=== PATIENT | female | born 1990 | race American Indian/Alaskan Native ===

== ENCOUNTER 2016-12-17 17:52 | Emergency (ER) | payer MEDICAID, OTHER ==
[2016-12-17 18:14] VITALS: BMI 38.7
[2016-12-17 19:09] LABS: GRANULAR CAST 1 /lpf (0-1); RBC URINE 2 /hpf (0-3); URINE BACTERIA RARE (<OCC); URINE BILIRUBIN NEGATIVE (NEGATIVE); URINE BLOOD NEGATIVE (NEGATIVE); URINE CALCIUM OXALATE CRYSTALS MANY /hpf (<OCC); URINE COLOR YELLOW (YELLOW); URINE GLUCOSE (UA) NEG (Normal); URINE KETONE NEGATIVE (NEGATIVE); URINE LEUKOCYTE ESTERASE NEG Leu/uL (Negative); URINE PROTEIN NEGATIVE (NEGATIVE); URINE UROBILINOGEN 0.2-1.0 mg/dL (0.2-1.0); WBC URINE 4 /hpf (0-5)
== END 2016-12-17 19:30 | disposition home or self-care (01) ==
LOC: H.EROB2 17:52
DX: O26.93 Pregnancy related conditions, unspecified, third trimester (principal); R19.7 Diarrhea, unspecified; Z87.59 Personal history of other complications of pregnancy, childbirth and the puerperium; Z3A.28 28 weeks gestation of pregnancy

== ENCOUNTER 2017-02-22 10:02 | Inpatient (IN) | payer MEDICAID, OTHER ==
[2017-02-22 10:17] VITALS: BMI 42.4
[2017-02-22] MEDS ORDERED: ceFAZolin 2 GM in Sodium Chloride 0.9% 100 ML IVPB ONE (10:20)
[2017-02-22] MEDS: Lactated Ringer's 1,000 ML IV SCH ×5 (10:30→16:11)
--- NOTE | 2017-02-22 10:48 | OBHP ---
Datetime: 02/22/2017 10:44 IP Adm Impression: Term, intrauterine ; No Active Labor IP Admit Plan: Admit to unit Admit Comment, IP Provider: Patient presents to labor delivery for repeat section tubal lig ation. Patient reports good movement no vaginal bleeding or leakage of fluid care unre markable patient has history of previous delivery declines vaginal delivery Past medical history none Past surgical history previous delivery No known drug allergies Social history denies alcohol tobacco use Medications vitamins Obstetrical history one normal vaginal delivery 1 previous delivery Review of systems unremarkable Vital signs stable afebrile Physical exam she notes Intrauterine at 39 weeks for repeat section and bilateral tubal ligation Reviewed the risks benefits and alternatives of delivery patient's questions were answered and she agrees with plan of care We'll admit for postop care Pelvic Type - PN: Adequate Extremities - PN: Normal Abdomen - PN: Normal Back - PN: Normal Breast - PN: Normal Lungs - PN: Normal Heart - PN: Normal Thyroid - PN: Normal Neurologic - PN: Normal HEENT - PN: Normal General - PN: Normal Weight - Estimated: 8 Presentation-Admit: Vertex Gestation - Est Wks by US: 39.0 EGA AdmitDate IP: 37.6 Vital Signs Provider: Reviewed IP Chief Complaint: Scheduled Section FHR Category Provider Fetus A: Category I NICHD Decel Fetus A IP Provider: None Genitourinary Exam: Normal DTRs - PN: Normal
[2017-02-22 11:24] LABS: BASO % 0.2 % (0.0-2.0); EOS # 0.1 K/uL (0.0-0.7); EOS % 0.9 % (0.0-4.0); HEMATOCRIT 34.1 % (34.0-47.0); LYMPH # 1.9 K/uL (1.0-4.3); LYMPH % 29.9 % (20.0-40.0); MEAN CELL VOLUME 87.1 fl (81.0-99.0); MEAN CORPUSCULAR HEMOGLOBIN 28.7 pg (27.0-31.0); MEAN CORPUSCULAR HGB CONC 32.9 g/dL (33.0-37.0); MONO # 0.5 K/uL (0.0-0.8); MONO % 8.3 % (0.0-10.0); NEUT # 3.9 K/uL (1.8-7.0); NEUT % 60.7 % (50.0-75.0); WHITE BLOOD COUNT 6.4 K/uL (4.8-10.8)
[2017-02-22] MEDS ORDERED: Oxytocin 30 units/LR 500ML 30 U/500 ML BAG IV ONE ×2 (11:45→12:55)
[2017-02-22] MEDS ORDERED: Morphine 1 mg/ml preservative-free Inj(Duramorph) ONE (12:26)
[2017-02-22] MEDS ORDERED: Naloxone 0.4 mg/ml Inj (Adult) IVP PRN (14:31)
[2017-02-22] MEDS: DiphenhydrAMINE 50 mg/ml Inj IVP PRN ×2 (14:40→21:01)
[2017-02-23 07:51] LABS: HEMATOCRIT 32.8 % (34.0-47.0); MEAN CELL VOLUME 87.2 fl (81.0-99.0); MEAN CORPUSCULAR HEMOGLOBIN 28.7 pg (27.0-31.0); MEAN CORPUSCULAR HGB CONC 32.9 g/dL (33.0-37.0); WHITE BLOOD COUNT 8.1 K/uL (4.8-10.8)
--- NOTE | 2017-02-23 11:49 | OBPPN ---
Datetime: 02/23/2017 11:38 PP Pain Prov: Within normal limits PP Nausea Prov: Denies PP Flatus Prov: Yes PP Breasts Prov: Normal PP Heart Prov: Normal PP Lungs Prov: Normal PP Abdomen/Uterus Prov: Normal PP Lochia Prov: Normal PP Vulva/Perineum Prov: Normal PP CVA Tenderness Prov: Normal PP Extremities Prov: Normal PP Comments Phys Exam Prov: Fundus firm under umbilicus Incision clean/dry/intact PP Impression Prov: Normal progression PP Plan Prov: Continue present management PP Progress Note Prov: Patient denies Cp, no sob, no N/V, tolerating PO diet, ambulating/voiding wel l, abdominal pain tolerable with meds, mild lochia, +flatus A/P POD #1 1. Reg diet 2. Percocet/Motrin prn pain 3. Encourage ambulation/ 4. Colace prn costipation IP PP Procedures: None Vital Signs Provider PP: Reviewed
[2017-02-24] MEDS: Oxycodone/Acetaminophen 5/325 mg Tab PO PRN ×3 (02:00→22:19)
--- NOTE | 2017-02-24 09:39 | OBPPN ---
Datetime: 02/24/2017 09:35 PP Pain Prov: Within normal limits PP Nausea Prov: Denies PP Flatus Prov: Yes PP BM Prov: No PP Abdomen/Uterus Prov: Normal PP Lochia Prov: Normal PP Extremities Prov: Normal PP C/S Incision Prov: Normal PP Progress Prov: Normal PP Comments Phys Exam Prov: Incision: intact, swerosanguinous drainage on steri strips, strips remov ed PP Impression Prov: Normal progression PP Plan Prov: Continue present management PP Progress Note Prov: POD 2 s/ Repeat LTCS, doing well, breast and bottle feeding Continue current management Vital Signs Provider PP: Reviewed
[2017-02-24] MEDS ORDERED: Hydrocortisone-Pramoxine 1%-1% Foam(10 gm) TOP PRN (09:40)
[2017-02-25] MEDS: Oxycodone/Acetaminophen 5/325 mg Tab PO PRN (09:22)
--- NOTE | 2017-02-25 10:12 | OBDCSUM ---
Datetime: 02/25/2017 08:42 Discharged to, Provider: Home Follow up at, Provider: OB Disch Instr Activity: Normal activity; May be up to bathroom; May be up for meals; May Shower Disch Instr Diet: Regular Discharge Diagnosis, Provider: Term Delivered Discharge Time: 02/25/2017 08:43 Follow up in weeks, Provider: 1-2 weeks Disch Referrals: None Disch Activity Restrictions: Minimize stair-climbing; No sexual activity; Nothing in vagina - Interc ourse, tampons, douche
--- NOTE | 2017-02-25 10:12 | OBPPN ---
Datetime: 02/25/2017 10:10 PP Pain Prov: Within normal limits PP Nausea Prov: Denies PP Flatus Prov: Yes PP Breasts Prov: Normal PP Heart Prov: Normal PP Lungs Prov: Normal PP Abdomen/Uterus Prov: Normal PP Lochia Prov: Normal PP Vulva/Perineum Prov: Normal PP CVA Tenderness Prov: Normal PP Extremities Prov: Normal PP Comments Phys Exam Prov: Fundus firm Incision clean/dry/intact PP Impression Prov: Normal progression PP Plan Prov: Continue present management PP Progress Note Prov: Patient denies Cp, no SOb, no N/V, tolerating PO diet, ambulating/voiding wel l, mild lochia, abdominal pain tolerable with meds, +flatus A/P POD #3 1. Discharge patient home 2. discharge instructions reviewed IP PP Procedures: None Vital Signs Provider PP: Reviewed; Within Normal Limits
[2017-02-25 19:05] VITALS: BP 121/79; PULSE 73; RESP 20; TEMP 98.5; O2SAT 97
--- NOTE | 2017-02-26 08:21 | OP ---
PROCEDURE DATE: PREOPERATIVE DIAGNOSES: Intrauterine at 37+ weeks, polyhydramnios, macrosomia, history of previous section. POSTOPERATIVE DIAGNOSES: Intrauterine at 37+ weeks, polyhydramnios, macrosomia, history of previous section. PROCEDURE: Repeat low flap transverse section via Pfannenstiel skin incision with bilateral tubal ligation. SURGEON: Chapin Rai MD BALANCE STAFF INSPECTOR: Jose Ramon Goodwin MD, where Dr. Goodwin was instrumental in the care of the patient, helped to clear the exposure, helped delivery of the , helped to obtain hemostasis, and helped in closing the fascia. The procedure would not have been possible without his assistance. ANESTHESIA: Spinal and administered by Dr. Slaughter. ESTIMATED BLOOD LOSS: 800 mL. URINE OUTPUT: Perez catheter put out approximately 700 mL of clear urine. IV FLUID INTAKE: The patient received approximately 1 liter of D5 LR intraoperatively. OPERATING FINDINGS: Baby boy, weighing 4755 g, Apgars 9 and 9. Normal uterus, tubes, and ovaries were identified. COMPLICATIONS: There were no complications. DESCRIPTION OF PROCEDURE: After informed consent was obtained, the patient was taken to the operating room where spinal anesthesia was found to be adequate. She was then placed in the leftward tilt. She was prepped and draped in the usual sterile fashion. A Pfannenstiel skin incision was then made with a scalpel and carried down to the underlying layer of fascia. The fascia was nicked in the midline. The fascial incision was then extended laterally with a curved Toscano scissors. The superior aspect of the fascial incision was then grasped with Stefano clamps, elevated up and the rectus muscles were dissected off using sharp and blunt dissection. Attention was then turned to the inferior aspect of the fascial incision with similar fashion, was grasped with Stefano clamps, elevated up and the rectus muscles were dissected up using sharp and blunt dissection. The rectus muscles were then in the midline, the peritoneum identified and entered sharply with the Metzenbaum scissors. The peritoneal incisions were then extended superiorly and inferiorly with good visualization of the bladder. The bladder blade was then inserted. The vesicouterine and peritoneum were identified and the bladder flap was created with the Metzenbaum scissors and extended laterally. A low transverse incision was then made with a scalpel. The incision was then extended laterally with bandage scissors. The 's head was delivered atraumatically and nose and mouth were suctioned with . The cord was clamped and cut. The infant was handed off to awaiting pediatricians. Placenta was then removed manually. The uterus was exteriorized and cleared of all clots and debris. The uterine incision was repaired with 0 Vicryl in a running locked fashion. Second layer, the same suture was used to obtain an excellent hemostasis. Attention was then turned to the fallopian tubes. They were grasped with Jamia clamps and the tube was excised with the Metzenbaum scissors. Mesosalpinx and tube were then sutured with 2-0, second suture was used to ensure ligation. Similar procedure was performed on the left. The gutters were then cleared off all clots and debris. The uterine incision was noted to be hemostatic. The abdomen was then copiously irrigated and the irrigant was removed with a suction device. The uterus was returned to the abdomen. The tubal stumps were reexamined and noted to be hemostatic. The peritoneum was then closed with 2-0 Vicryl in a running fashion. The muscles were reapproximated with 0-Vicryl in an interrupted fashion and the fascia was closed with 0 Vicryl in a running fashion. The skin was closed with 4-0 on a Cosmo needle. All sponge, lap, and instruments counts were correct x2 and the patient was taken to the recovery room in awake and stable condition. Chapin Rai MD
--- NOTE | 2017-03-02 08:46 | OBADHP ---
Datetime: 02/22/2017 10:44 Admit Comment, IP Provider: Patient presents to labor delivery for repeat section tubal lig ation. Patient reports good movement no vaginal bleeding or leakage of fluid care unre markable patient has history of previous delivery declines vaginal delivery Past medical history none Past surgical history previous delivery No known drug allergies Social history denies alcohol tobacco use Medications vitamins Obstetrical history one normal vaginal delivery 1 previous delivery Review of systems unremarkable Vital signs stable afebrile Physical exam she notes Intrauterine at 39 weeks for repeat section and bilateral tubal ligation Reviewed the risks benefits and alternatives of delivery patient's questions were answered and she agrees with plan of care We'll admit for postop care Pelvic Type - PN: Adequate Extremities - PN: Normal Abdomen - PN: Normal Back - PN: Normal Breast - PN: Normal Lungs - PN: Normal Heart - PN: Normal Thyroid - PN: Normal Neurologic - PN: Normal HEENT - PN: Normal General - PN: Normal Weight - Estimated: 8 Presentation-Admit: Vertex Gestation - Est Wks by US: 39.0 Vital Signs Provider: Reviewed IP Chief Complaint: Scheduled Section FHR Category Provider Fetus A: Category I NICHD Decel Fetus A IP Provider: None Genitourinary Exam: Normal DTRs - PN: Normal EGA AdmitDate IP: 37.6 IP Adm Impression: Term, intrauterine ; No Active Labor IP Admit Plan: Admit to unit Datetime: 12/17/2016 18:48 IP Chief Complaint Other: diarrhea FHR - Baseline A Provider: 120 Contraction Comments Provider: none NICHD Variability Prov Fetus A: Moderate 6-25bpm NICHD Accel Fetus A IP Provider: [id number]
== END 2017-02-25 13:25 | disposition home or self-care (01) | DRG 371 ==
LOC: H.L&D 10:24 → H.OB/GYN 16:51
PROVIDERS: ADMIT Obstetrics & Gynecology Gynecology; ATTEND Obstetrics & Gynecology Gynecology
PROC: 10D00Z1 Extraction of Products of Conception, Low, Open Approach (ICD-10-PCS; principal; 2017-02-22)
PROC: 0UL70ZZ Occlusion of Bilateral Fallopian Tubes, Open Approach (ICD-10-PCS; 2017-02-22)
PROC: 4A1HXCZ Monitoring of Products of Conception, Cardiac Rate, External Approach (ICD-10-PCS; 2017-02-22)
DX: O34.211 Maternal care for low transverse scar from previous cesarean delivery (principal); O40.3XX0 Polyhydramnios, third trimester, not applicable or unspecified; Z37.0 Single live birth; N85.8 Other specified noninflammatory disorders of uterus; O36.63X0 Maternal care for excessive fetal growth, third trimester, not applicable or unspecified; Z3A.39 39 weeks gestation of pregnancy; Z30.2 Encounter for sterilization

== ENCOUNTER 2018-04-09 18:14 | Emergency (ER) | payer OTHER ==
[2018-04-09 18:14] VITALS: BMI 42.4
[2018-04-09 18:38] VITALS: BP 110/71; PULSE 79; RESP 16; TEMP 98.9; O2SAT 99
--- NOTE | 2018-04-09 18:46 | ED PDOC ---
Lower Extremity Pain/Injury Time Seen by Provider: 04/09/18 18:38 Chief Complaint (Nursing): Lower Extremity Problem/Injury Chief Complaint (Provider): Left Ankle Pain History Per: Patient History/Exam Limitations: no limitations Onset/Duration Of Symptoms: Days (x1) Current Symptoms Are (Timing): Still Present Additional Complaint(s): 28 year old female presents to the ED for evaluation of left ankle pain. Patient states that yesterday, she twisted the ankle, which resulted in limping and favoring the left leg. Since limping, she notes non-radiating, atraumatic lower back and neck pain. Otherwise, denies numbness, tingling, dysuria, hematuria, and incontinence. PMD: Clifford Past Medical History Reviewed: Historical Data, Nursing Documentation, Vital Signs Vital Signs: Last Vital Signs Temp 98.9 F 04/09/18 18:35 Pulse 79 04/09/18 18:35 Resp 16 04/09/18 18:35 BP 110/71 04/09/18 18:35 Pulse Ox 99 04/09/18 18:35 - Medical History PMH: No Chronic Diseases Denies: Depression, Diabetes, HTN - Family History Family History: States: Unknown Family Hx - Home Medications Home Medications: Ambulatory Orders Medication Instructions Recorded RX: Hydrocortisone-Pramoxine 1%-1% 1 gm TOP TID PRN aer 02/25/17 [Proctofoam] RX: Ibuprofen [Motrin Tab] 600 mg PO Q6 #20 tab 02/25/17 RX: Ibuprofen [Motrin Tab] 600 mg PO Q6 PRN tab 02/25/17 RX: Ortega Maganael [Tucks] 1 pad TP TID pad 02/25/17 RX: oxyCODONE/Acetaminophen 1 tab PO Q4 PRN #20 tab 02/25/17 [Percocet 5/325 mg Tab] Valacyclovir HCl [Valtrex] 1,000 mg PO DAILY #2 tablet 02/25/17 RX: Naproxen [Naprosyn] 500 mg PO BID PRN #10 tab 04/09/18 - Allergies Allergies/Adverse Reactions: Allergies Allergy/AdvReac Type Severity Reaction Status Date / Time No Known Allergies Allergy Verified 04/09/18 18:35 Review of Systems ROS Statement: Except As Marked, All Systems Reviewed And Found Negative Genitourinary Female: Negative for: Dysuria, Incontinence, Hematuria Musculoskeletal: Positive for: Neck Pain (non-radiating, atraumatic), Back Pain (lower, non-radiating, atraumatic), Other (left ankle pain) Neurological: Negative for: Numbness (or tingling) Physical Exam - Reviewed Nursing Documentation Reviewed: Yes Vital Signs Reviewed: Yes - Physical Exam Appears: Positive for: No Acute Distress Head Exam: Positive for: ATRAUMATIC, NORMOCEPHALIC Neck: Positive for: Normal, Painless ROM, Supple Pulses-Dorsalis Pedis (L): 2+ Pulses-Dorsalis Pedis (R): 2+ Back: Positive for: Normal Inspection. Negative for: L CVA Tenderness, R CVA Tenderness, Vertebral Tenderness, Muscle Spasm, Other (cervical midline tenderness) Extremity: Positive for: Tenderness (mild to left ankle lateral malleolus; no tenderness to remainder of LLE), Capillary Refill (less than 2 seconds). Negative for: Deformity (to LLE), Swelling (to LLE) - ECG O2 Sat by Pulse Oximetry: 99 (RA) Pulse Ox Interpretation: Normal Medical Decision Making Medical Decision Making: Time: 1842 Initial Impression: ankle, neck, and back pain Initial Plan: --Tylenol 975mg PO --Left ankle XR L ankle x-ray: no fx Ankle immobilized in aircast splint applied by cath lab radiology technician. Crutches provided. Scribe Attestation: Documented by Maddie Duncan, acting as a scribe for Bernard Guerrero PA-C. Provider Scribe Attestation: All medical record entries made by the Scribe were at my direction and personally dictated by me. I have reviewed the chart and agree that the record accurately reflects my personal performance of the history, physical exam, medical decision making, and the department course for this patient. I have also personally directed, reviewed, and agree with the discharge instructions and disposition. Disposition - Clinical Impression Clinical Impression: Ankle injury - Patient ED Disposition Is Patient to be Admitted: No - Disposition Referrals: Bello Casiano III, MD [Staff Provider] - Disposition: Routine/Home Disposition Time: 19:09 Condition: STABLE Additional Instructions: FOLLOW UP WITH DR. CASIANO FOR FURTHER EVALUATION RETURN TO ED IMMEDIATELY IF SYMPTOMS WORSEN NIALL GARCIA, thank you for letting us take care of you today. Your provider was Brittany Anton MD and you were treated for LT ANKLE PAIN, BACK PAIN. The emergency medical care you received today was directed at your acute symptoms. If you were prescribed any medication, please fill it and take as directed. It may take several days for your symptoms to resolve. Return to the Emergency Department if your symptoms worsen, do not improve, or if you have any other problems. Please contact your doctor or call one of the physicians/clinics you have been referred to that are listed on the Patient Visit Information form that is included in your discharge packet. Bring any paperwork you were given at discharge with you along with any medications you are taking to your follow up visit. Our treatment cannot replace ongoing medical care by a primary care provider outside of the emergency department. Thank you for allowing the [facility] team to be part of your care today. If you had an X-Ray or CT scan: A Radiologist will review the ED reading if any change in treatment is needed we will contact you. If you had a blood, urine, or wound culture: It will take several days for the results, if any change in treatment is needed we will contact you. If you had an STI test: It will take 48 hours for the results. Please call after 1 week if you have not heard back. Prescriptions: RX: Naproxen [Naprosyn] 500 mg PO BID PRN #10 tab PRN Reason: Pain Instructions: Ankle Sprain (DC), How to Use Crutches Forms: [facility] ([employer]), [facility] ED School/Work Excuse Print Language: ESTONIAN
--- NOTE | 2018-04-10 10:33 | RAD ---
Date of service: 04/09/2018 PROCEDURE: Left Ankle Radiographs. HISTORY: Trauma COMPARISON: None FINDINGS: BONES: Bone alignment and mineralization are normal. There is no acute displaced fracture or bone destruction. JOINTS: Normal. Ankle mortise maintained. Talar dome intact SOFT TISSUES: Normal. OTHER FINDINGS: None. IMPRESSION: No acute fracture or dislocation.
== END 2018-04-09 19:45 | disposition home or self-care (01) ==
LOC: H.ER 18:14
DX: S99.912A Unspecified injury of left ankle, initial encounter (principal); X50.9XXA Other and unspecified overexertion or strenuous movements or postures, initial encounter; Y92.89 Other specified places as the place of occurrence of the external cause